=== PATIENT | female | born 2000 | race Caucasian/White ===

== ENCOUNTER 2024-01-13 08:41 | Inpatient (IN) ==
[2024-01-13] MEDS ORDERED: ACETAMINOPHEN 325 MG TAB PO PRN (09:35)
[2024-01-13] MEDS ORDERED: CALCIUM CARBONATE 500 MG CHEWABLE TAB PO PRN ×2 (09:35→14:55)
[2024-01-13] MEDS: LACTATED RINGER'S 2,000 ML IV ONE (10:03)
[2024-01-13] MEDS: MoRPHine SULFATE 10 MG/ML CARP/VIAL IM STA (10:09)
[2024-01-13] MEDS: LACTATED RINGER'S 1,000 ML IV PRN (12:05)
[2024-01-13] MEDS: ONDANSETRON INJ 2 MG/ML 2 ML VIAL IV PRN (14:46)
[2024-01-13] MEDS ORDERED: OXYTOCIN 30 UNITS/NSS 30 UNITS/500 ML BAG IV PRN (14:55)
[2024-01-13] MEDS ORDERED: ACETAMINOPHEN 500 MG TAB PO PRN (14:55)
[2024-01-13] MEDS ORDERED: LIDOCAINE 1% LOCAL 20 ML VIAL INFIL PRN (14:55)
--- NOTE | 2024-01-13 15:07 | History & Physical Report ---
Date of Service January 13, 2024 Assessment & Plan (1) Labor, prolonged latent phase: (2) Uterine contractions at greater than 20 weeks of gestation: Plan: 23-year-old G1, P0 at 40 weeks and 3 days gestation with a parroting today with regular contractions, cervical change, early/latent labor, Vital signs stable afebrile, GBS negative, Vaping nicotine during , heart rate reassuring except for single episode of deceleration about 3 hours ago, category 1 since then, Plan to admit, monitor, expectant management for now and augment with oxytocin when nursing team available, All questions were answered. (3) Vaping nicotine dependence, tobacco product: History of Present Illness Primary Care Provider: NO PCP Patient is a 23 yo at 40.3 wks who has been having contractions since 4 am, they have been every 3-6 min and painful. No LOF/VB +FM When she first presented to labor and delivery her cervix was 1 to 2 cm, 70% effaced, -3 posterior. She was given IV fluids and morphine for pain and rest. she states she could not sleep much contractions are about the same some of them are very painful some are not. She rates her pain 7-10/10. heart rate had been category 1 except an episode of single deceleration for about 1-1/2 minutes with spontaneous recovery around noon. It has aquiles categ I since then. We held to her under observation until now due to no nursing available for admission induction of labor. Her cervix now has changed to 2 to 3 cm, 80% effaced, head -3 with bulging back. Decision was made to admit her and then observe her, augment with oxytocin when nursing team available later today. 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 fob changes litter. 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 Review of Systems as per Subjective / HPI Physical Exam Constitutional: WD/WN, vitals as above Gastrointestinal (Abdomen): normal bowel sounds, soft, nontender, no hepatosplenomegaly ( gravid, [place] 7 to 8 pounds) Genitourinary: normal external appearance Manual OB Exam: + cervical dilation 2 cm (2-3), + cervical effacement 80% and + station high ( -3, bulging bag) OB Exam Monitor Tracing: + external uterine monitor used and + category I Results & Data Vital Signs (Past 12 Hours) Vital Signs Temp Pulse Resp BP O2 Del Method 01/13/24 09:00 36.7 C 97 H 18 108/64 Room Air 01/13/24 08:52 97 H 108/64
[2024-01-13 15:28] LABS: Hematocrit (blood only) 31.3 % (37.0-47.0); Hemoglobin 10.2 g/dl (12.0-16.0); Mean Corpuscular Hemoglobin 25.5 pg (25.0-34.0); Mean Corpuscular Hgb Conc 32.6 g/dL (32.0-36.0); Mean Corpuscular Volume 78.3 fL (80.0-100.0); Mean Platelet Volume 11.9 fL (9.4-12.4); Platelet Count 224 K/uL (130-400); RDW Coefficient of Variation 15.7 % (11.5-14.5); RDW Standard Deviation 43.2 fL (36.4-46.3); White Blood Count 13.22 K/ul (4.8-10.8)
[2024-01-13] MEDS: BUTORPHANOL TARTRATE 2 MG/ML VIAL IV PRN (15:59)
[2024-01-13] MEDS ORDERED: fentANYL 2 MCG/ML BUPIVacaine 0.125%-NSS 100ML BAG EPI PRN (20:35)
[2024-01-13] MEDS ORDERED: BUPIVACAINE 0.25% PF 30 ML VIAL EPI PRN (20:35)
[2024-01-13] MEDS ORDERED: ePHEDrine sulfate 50 MG/ML AMP IV PRN (20:35)
[2024-01-13] MEDS ORDERED: fentaNYL citrate PF 100 MCG/2 ML VIAL EPI PRN (20:35)
[2024-01-13] MEDS ORDERED: NALOXONE HCL 1 MG in SODIUM CHLORIDE 0.9% 1,000 ML IV PRN (20:35)
[2024-01-13] MEDS ORDERED: NALOXONE HCL 0.4 MG/1 ML VIAL/CARP IV PRN (20:35)
[2024-01-13] MEDS ORDERED: ONDANSETRON INJ 2 MG/ML 2 ML VIAL IV PRN (20:35)
[2024-01-13] MEDS ORDERED: SODIUM CHLORIDE 0.9% PF INJ 10 ML VIAL EPI PRN (20:35)
[2024-01-13] MEDS ORDERED: NALBUPHINE HCL 5 MG in SYRINGE 0 ML IV PRN (20:35)
[2024-01-13] MEDS ORDERED: diphenhydrAMINE 50 MG/ML VIAL IV PRN (20:35)
[2024-01-13] MEDS ORDERED: ROPIVACAINE 0.5% PF 5 MG/ML 20 ML VIAL EPI PRN (20:35)
[2024-01-13] MEDS ORDERED: LIDOCAINE 2% MPF LOCAL 5 ML VIAL EPI PRN (20:35)
--- NOTE | 2024-01-13 20:37 | Anesthesiology Consultation ---
Date of Service January 13, 2024 Assessment & Plan (1) Encounter for pre-operative examination: Chart Review Chart Review: Patient NOT seen in Pre Admission Testing and Acceptable Risk for Labor Epidural Consults Requested none History Height/Weight Height: 5 ft 4.5 in Weight: 83 kg Allergies Allergy/AdvReac Type Severity Reaction Status Date / Time nickel Allergy Mild Irritable Verified 01/13/24 18:56 Medications Home Medications Medication Instructions Recorded Confirmed Last Taken etensarl-[id number]-[id number] 1 mg 1 tab PO DAILY 01/03/24 01/03/24 1 Day Ago tablet ~01/02/24 Active Medications Generic Name Dose Route Start Last Admin Trade Name Freq PRN Reason Stop Dose Admin Butorphanol Tartrate 1 mg 01/13/24 14:55 01/13/24 15:59 Butorphanol Tartrate 2 Mg/Ml Vial IV 02/12/24 14:54 1 mg Q3H PRN Administration Pain Protocol Lactated Ringer's 1,000 mls @ 150 mls/hr 01/13/24 14:55 01/13/24 18:00 Lr IV 01/15/24 14:54 125 mls/hr .[id number] PRN Administration L&D Protocol Protocol Ondansetron HCl 4 mg 01/13/24 09:35 01/13/24 20:21 Ondansetron Inj 2 Mg/Ml 2 Ml Vial IV 02/12/24 09:34 4 mg Q4H PRN Administration Nausea And Vomiting Past Medical History Medical History (Updated 01/13/24 @ 20:37 by David Rosales MD) Encounter for pre-operative examination No known health problems Exercise / Class Metabolic Activity II 4-5 Yardwork/Stairs/Walk up hill Past Anesthesia History No Hx of Anesthesia Complications and No Family Hx of Anesthesia Complications Social History Smoking Status: Current every day smoker Do You Dip or Chew Tobacco: No Hx Alcohol Use: No Hx Substance Use: No Physical Exam Vital Signs Last Vital Signs Temp 36.4 C L 01/13/24 19:19 Pulse 97 H 01/13/24 21:10 Resp 18 01/13/24 19:19 BP 128/74 01/13/24 21:10 Pulse Ox 100 01/13/24 21:08 O2 Del Method Room Air 01/13/24 09:00 Testing Laboratory Results 01/13/24 15:09
[2024-01-13] MEDS: LIDOCAINE 2%/EPINEPHRINE 1:200,000 20 ML PF ONE (21:14)
[2024-01-13] MEDS: fentANYL 2 MCG/ML BUPIVacaine 0.125%-NSS 100ML BAG ONE (21:14)
[2024-01-13] MEDS: fentaNYL citrate PF 100 MCG/2 ML VIAL ONE (21:14)
[2024-01-13] MEDS: SODIUM CHLORIDE 0.9% PF INJ 10 ML VIAL ONE (21:15)
[2024-01-13] MEDS: BUPIVACAINE 0.25% PF 30 ML VIAL ONE (21:15)
[2024-01-13] MEDS: BUPIVACAINE 0.25% PF 30 ML VIAL EPI STA (21:20)
[2024-01-13] MEDS: SODIUM CHLORIDE 0.9% PF INJ 10 ML VIAL EPI STA (21:20)
[2024-01-13] MEDS: fentaNYL citrate PF 100 MCG/2 ML VIAL EPI STA (21:20)
[2024-01-13] MEDS: LIDOCAINE 2%/EPINEPHRINE 1:200,000 20 ML PF EPI STA (21:20)
--- NOTE | 2024-01-13 21:55 | Obstetrical Progress Note ---
Date of Service January 13, 2024 Assessment & Plan Admission and Anticipated Discharge Date Admission Date: January 13, 2024 Subjective Patient has epidural now, comfortable VE; 4/ 90%/ -2, bulging bag, AROM'ed,light meconium FHR categ I [employer]: ctxs q 2-4 min Plan to augment with Oxytocin Continue to monitor Results & Data Vital Signs (Past 12 Hours) Vital Signs Temp Pulse Resp BP Pulse Ox 01/13/24 21:48 98 01/13/24 21:48 91 H 01/13/24 21:46 94 01/13/24 21:46 80 01/13/24 21:46 96/57 L 01/13/24 21:43 97 01/13/24 21:43 81 01/13/24 21:43 77 01/13/24 21:43 105/62 01/13/24 21:40 90 01/13/24 21:40 108/64 01/13/24 21:38 98 01/13/24 21:38 86 01/13/24 21:37 95 H 01/13/24 21:37 109/61 01/13/24 21:34 92 H 01/13/24 21:34 107/62 01/13/24 21:33 98 01/13/24 21:33 96 H 01/13/24 21:31 89 01/13/24 21:31 100/60 01/13/24 21:28 97 01/13/24 21:28 77 01/13/24 21:28 75 01/13/24 21:28 108/62 01/13/24 21:25 76 01/13/24 21:25 108/59 L 01/13/24 21:23 97 01/13/24 21:23 75 01/13/24 21:22 71 01/13/24 21:22 98/55 L 01/13/24 21:19 76 01/13/24 21:19 106/58 L 01/13/24 21:18 95 01/13/24 21:18 82 01/13/24 21:16 73 01/13/24 21:16 101/67 01/13/24 21:13 100 01/13/24 21:13 79 01/13/24 21:13 113/56 L 01/13/24 21:10 97 H 01/13/24 21:10 128/74 01/13/24 21:08 100 01/13/24 21:08 82 01/13/24 21:04 100 H 01/13/24 21:04 146/92 H 01/13/24 21:03 100 01/13/24 21:03 99 H 01/13/24 20:58 100 01/13/24 20:58 80 01/13/24 20:58 80 01/13/24 20:58 119/83 01/13/24 20:55 90 01/13/24 20:55 122/67 01/13/24 20:53 100 01/13/24 20:53 89 01/13/24 20:53 93 01/13/24 20:53 99 H 01/13/24 19:20 85 01/13/24 19:20 117/76 01/13/24 19:19 18 01/13/24 19:19 36.4 C L 18 01/13/24 16:04 91 H 01/13/24 16:04 113/70 01/13/24 16:00 18 01/13/24 16:00 36.9 C 18
[2024-01-13] MEDS: ePHEDrine sulfate 50 MG/ML AMP ONE (21:59)
[2024-01-13] MEDS: OXYTOCIN 30 UNITS/NSS 30 UNITS/500 ML BAG IV PRN (22:27)
[2024-01-14] MEDS ORDERED: HYDROCORTISONE ACETATE 25 MG SUPP PR PRN (03:40)
[2024-01-14] MEDS ORDERED: bisacodyL 10 MG SUPP PR PRN (03:40)
[2024-01-14] MEDS ORDERED: OXYTOCIN 30 UNITS/NSS 30 UNITS/500 ML BAG IV PRN (03:40)
[2024-01-14] MEDS ORDERED: ACETAMINOPHEN 325 MG TAB PO PRN (03:40)
[2024-01-14] MEDS ORDERED: oxyCODONE/ACETAMINOPHEN 5mg/325mg TAB PO PRN (03:40)
--- NOTE | 2024-01-14 03:48 | Delivery Summary ---
Vaginal Delivery Summary Date of Service January 14, 2024 Vaginal Delivery Summary Patient was found to be fully dilated and desires to push. She pushed for about 15 min and delivered the head and then shoulders with minimal traction at 0310. There was a nuchal cord around the neckx1 and it was reduced. The baby was handed off to the mother. The cord was clampedx2 and cut. The vagina and perineum were checked and found to have 1st degree vaginal lacerations at 4 and 7 o'clock positions with extension to labia. The vaginal mucosa was repaired with 2/0 vicryl and labia with 3/0 Vicryl on SH needle on continuous fashion. The placenta was delivered spontaneously as intact and complete. The uterus was explored and found to be empty. QBL was 192 ml. The fundus was firm. The baby was a viable male infant, Apgars 8/9, the weight is pending. The mother and the baby tolerated the procedure well. No complications happened and I was present during whole procedure.
[2024-01-14] MEDS: MEASLES, MUMPS & RUBELLA VIRUS VACCINE (MMR) 0.5ML VIAL SQ ONE (03:49)
[2024-01-14] MEDS: DIPHTHER/TETAN/PERTUS Vaccine (Tdap, Adol/Adult) 0.5mL IM ONE (03:50)
[2024-01-14] MEDS: IBUPROFEN 600 MG TAB PO PRN (04:18)
[2024-01-14] MEDS: BENZOCAINE 20% SPRY 85 APPLN/85 GM CAN EXT PRN (04:18)
[2024-01-14] MEDS: MINERAL OIL 30 ML UDC ONE (06:33)
[2024-01-14] MEDS: DOCUSATE SODIUM 100 MG CAP PO SCH (08:48)
[2024-01-14] MEDS: PRENATAL VITAMIN 1 TAB PO SCH (08:48)
[2024-01-14] MEDS: FERROUS SULFATE 325 MG TAB PO SCH (08:48)
--- NOTE | 2024-01-14 09:41 | Anesthesia Procedure Note ---
Date of Service January 14, 2024 Anesthesia Post Epidural Note Vital Signs Vital Signs: Temp Pulse Resp BP Pulse Ox O2 Del Method 36.7 C 82 18 100/68 99 Room Air 01/14/24 06:25 01/14/24 06:25 01/14/24 06:25 01/14/24 06:25 01/14/24 06:25 01/14/24 06:25 Pain Intensity Abdomen: Pain Intensity: 8 Notes Mental Status: alert / awake / arousable Nausea / Vomiting: adequately controlled Pain: adequately controlled Airway Patency, RR, SpO2: stable & adequate BP & HR: stable & adequate Hydration State: stable & adequate Neuraxial Anesthesia: was administered and sensory block is resolving Anesthetic Complications: no major complications apparent Epidural: Removed without complications and With tip intact
[2024-01-15 06:13] LABS: Hematocrit (blood only) 26.2 % (37.0-47.0); Hemoglobin 8.5 g/dl (12.0-16.0); Mean Corpuscular Hemoglobin 25.9 pg (25.0-34.0); Mean Corpuscular Hgb Conc 32.4 g/dL (32.0-36.0); Mean Corpuscular Volume 79.9 fL (80.0-100.0); Mean Platelet Volume 12.1 fL (9.4-12.4); Platelet Count 208 K/uL (130-400); RDW Standard Deviation 44.2 fL (36.4-46.3); Red Blood Count 3.28 M/uL (4.20-5.40); White Blood Count 15.56 K/ul (4.8-10.8)
--- NOTE | 2024-01-15 12:01 | Obstetrical Progress Note ---
Date of Service January 15, 2024 Assessment & Plan Admission and Anticipated Discharge Date Admission Date: January 13, 2024 Subjective Patient is seen and examined. She feels well, no complaints. Ambulating without dizziness Voiding without difficulty Tolerating regular diet with out N&V Bleeding is minimal No fever/ chills/ CP/ SOB/ N&V/ Leg pain Breast and bottle feeding without problems Vital Signs Temp Pulse Resp BP Pulse Ox O2 Del Method 01/15/24 08:00 36.3 C L 95 H 18 120/63 99 Room Air Lab Results 01/13/24 01/15/24 Range/Units 15:09 05:54 WBC 13.22 H 15.56 H (4.8-10.8) K/ul RBC 4.00 L 3.28 L (4.20-5.40) M/uL Hgb 10.2 L 8.5 L (12.0-16.0) g/dl Hct 31.3 L 26.2 L (37.0-47.0) % MCV 78.3 L 79.9 L (80.0-100.0) fL MCH 25.5 25.9 (25.0-34.0) pg MCHC 32.6 32.4 (32.0-36.0) g/dL RDW Std Deviation 43.2 44.2 (36.4-46.3) fL RDW Coeff of Nova 15.7 H 16.0 H (11.5-14.5) % Plt Count 224 208 (130-400) K/uL MPV 11.9 12.1 (9.4-12.4) fL RPR Nonreactive (Nonreactive) PE: General: Alert, orientedx3, NAD Abd: soft, NT, fundus firm, below Umbilicus Perineum intact, Lochia rubra minimal Ext; NT, no edema AP: 23 yo s/p , ppd# 1 VSS Afebrile doing well Continue routine care All questions were answered Desires D/C home after dinner Results & Data Vital Signs (Past 12 Hours) Vital Signs Temp Pulse Resp BP Pulse Ox O2 Del Method 01/15/24 08:00 36.3 C L 95 H 18 120/63 99 Room Air
[2024-01-15] MEDS: IRON SUCROSE 200 MG in 0.9 % SODIUM CHLORIDE 100 ML IV ONE (12:25)
[2024-01-15] MEDS ORDERED: bisacodyL 5 MG TABEC PO SCH (20:00)
== END 2024-01-15 19:00 | disposition home or self-care (01) | DRG 807 ==
LOC: OPB 08:41 → 4S1 08:42 → 4E2 01-14 06:15